=== PATIENT | male | born 1995 | race Caucasian/White ===

== ENCOUNTER 2021-12-20 20:03 | Emergency (ER) | payer OTHER ==
[~2021-12-20] VITALS: Ht 172.7 cm; Wt 122.7 kg
[2021-12-20 20:11] VITALS: TEMP 97.6
[2021-12-20 21:06] VITALS: BP 152/98; PULSE 96
== END 2021-12-20 21:06 | disposition home or self-care (01) ==
LOC: COL.ER 20:03
DX: S61.012A Laceration without foreign body of left thumb without damage to nail, initial encounter (principal); W26.0XXA Contact with knife, initial encounter; Y93.G3 Activity, cooking and baking; Y92.000 Kitchen of unspecified non-institutional (private) residence as the place of occurrence of the external cause